=== PATIENT | female | born 1995 | race Caucasian/White ===

== ENCOUNTER 2018-09-07 14:52 | Emergency (ER) | payer SELFPAY ==
[2018-09-07] MEDS ORDERED: LIDOCAINE 1% 20 ML MDV ONE (17:59)
[2018-09-07] MEDS ORDERED: DOXYCYCLINE 100 MG CAP PO ONE (17:59)
[2018-09-07] MEDS ORDERED: CIPROFLOXACIN HCL 500 MG TAB ONE (17:59)
[2018-09-07 18:26] LABS: Urine Blood NEGATIVE (NEG); Urine Glucose NEGATIVE (NEG); Urine Protein NEGATIVE (NEG); Urine Specific Gravity 1.015 (1.005-1.030)
[2018-09-07 18:26] LABS: Urine Specific Gravity 1.015 (1.005-1.030)
--- NOTE | 2018-09-07 18:30 | ER ---
Nurse's Notes [facility] Name: Irene Flannery Age: 23 yrs Sex: Female : 1995 Arrival Date: 09/07/2018 Time: 14:54 Bed 11 Private MD: None, None Diagnosis: Pilonidal sinus with abscess;Urinary tract infection, site not specified Presentation: 09/07 16:21 Presenting complaint: Patient states: Abscess to L gluteal cleft since Tuesday, no ph drainage, redness and swelling noted, pt denies N/V/D or fever. Transition of care: patient was not received from another setting of care. Onset of symptoms was September 07, 2018. Risk Assessment: Do you want to hurt yourself or someone else? Patient reports no desire to harm self or others. Initial Sepsis Screen: Does the patient meet any 2 criteria? No. Patient's initial sepsis screen is negative. Does the patient have a suspected source of infection? No. Patient's initial sepsis screen is negative. Care prior to arrival: None. 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 - Social history:: Smoking status: Patient uses tobacco products, smokes one-half pack cigarettes per day. - Family history:: not pertinent. - Ebola Screening: : No symptoms or risks identified at this time. Screenin:00 Abuse screen: Denies threats or abuse. Denies injuries from another. Nutritional hb screening: No deficits noted. Tuberculosis screening: No symptoms or risk factors identified. Fall Risk None identified. Assessment: 17:00 General: Appears in no apparent distress. uncomfortable, Behavior is calm, cooperative. hb Pain: Pain currently is 8 out of 10 on a pain scale. Neuro: Level of Consciousness is awake, alert, obeys commands, Oriented to person, place, time, situation. Cardiovascular: Capillary refill < 3 seconds Patient's skin is warm and dry. Respiratory: Airway is patent Respiratory effort is even, unlabored, Respiratory pattern is regular, symmetrical. GI: No signs and/or symptoms were reported involving the gastrointestinal system. : No signs and/or symptoms were reported regarding the genitourinary system. EENT: No signs and/or symptoms were reported regarding the EENT system. Derm: Abscess located on coccyx. Musculoskeletal: No signs and/or symptoms reported regarding the musculoskeletal system. 18:00 Reassessment: Patient appears in no apparent distress at this time. No changes from hb previously documented assessment. Patient and/or family updated on plan of care and expected duration. Pain level reassessed. Patient is alert, oriented x 3, equal unlabored respirations, skin warm/dry/pink. 19:00 Reassessment: Patient appears in no apparent distress at this time. No changes from hb previously documented assessment. Patient and/or family updated on plan of care and expected duration. Pain level reassessed. Patient is alert, oriented x 3, equal unlabored respirations, skin warm/dry/pink. Vital Signs: 16:26 BP 129 / 82; Pulse 89; Resp 18; Temp 98.4; Pulse Ox 100% on R/A; ph ED Course: 14:54 Patient arrived in ED. ag5 14:54 None, None is Private Physician. ag5 16:26 Triage completed. ph 16:28 Arm band placed on. ph 16:45 Chitra Nj RN is Primary Nurse. ph 16:46 Blade Dolan MD is Attending Physician. ronda 18:00 Patient has correct armband on for positive identification. Bed in low position. Call hb light in reach. Side rails up X 1. 18:29 Juventino Dennis MD is Referral Physician. ronda 18:30 Assist provider with I \T\ D: of an abscess on pilonidal cyst Set up I\T\D tray. Performed hb by Blade Dolan MD Wound packed. iodoform gauze, Dressing with ABD pad, tape Patient tolerated well. 19:39 Patient did not have IV access during this emergency room visit. hb Administered Medications: 17:46 CANCELLED (Duplicate Order): Bactrim (160 mg-800 mg (DS) 1 tablet PO once ronda 18:00 Drug: Doxycycline 100 mg Route: PO; hb 18:30 Follow up: Response: No adverse reaction ph 18:00 Drug: Cipro 500 mg Route: PO; hb 18:30 Follow up: Response: No adverse reaction ph 18:32 Drug: Lidocaine-Epinephrine -1%: (1:100,000) 10 ml {Note: by Dr. Dolan.} Volume: 20 hb ml; Route: Infiltration; 19:00 Follow up: Response: No adverse reaction ph 19:02 Drug: Zofran 4 mg Route: PO; hb 19:05 Follow up: Response: No adverse reaction ph Outcome: 18:30 Discharge ordered by MD. bond 19:39 Discharged to home ambulatory, with family. hb 19:39 Condition: stable 19:39 Discharge instructions given to patient, family, Instructed on discharge instructions, follow up and referral plans. medication usage, wound care, Demonstrated understanding of instructions, follow-up care, medications, wound care, Prescriptions given X 3. 19:40 Patient left the ED. Signatures: Blade Dolan MD MD cha Hall, Patricia, RN RN Cande Garner, RN RN Chantel He ag5 Corrections: (The following items were deleted from the chart) 17:36 16:27 Allergies: No Known Allergies; [facility]
--- NOTE | 2018-09-07 18:31 | EDPHYS ---
Physician Documentation [facility] Name: Irene Flannery Age: 23 yrs Sex: Female : 1995 Arrival Date: 09/07/2018 Time: 14:54 Bed 11 Private MD: None, None ED Physician Blade Dolan HPI: 09/07 17:18 This 23 yrs old Female presents to ER via Ambulatory with complaints of Back ronda Pain, POSSIBLE CYST. 17:18 The patient presents with pain that is acute, and swelling, and tenderness. The ronda symptoms are located in the low back, coccyx area. Onset: The symptoms/episode began/occurred 2 day(s) ago. The pain does not radiate. Associated signs and symptoms: The patient has no apparent associated signs or symptoms. Severity of symptoms: At their worst the symptoms were moderate, in the emergency department the symptoms are unchanged. The patient has not experienced similar symptoms in the past. 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 - Social history:: Smoking status: Patient uses tobacco products, smokes one-half pack cigarettes per day. - Family history:: not pertinent. - Ebola Screening: : No symptoms or risks identified at this time. ROS: 17:18 Constitutional: Negative for fever, chills, and weight loss, Eyes: Negative for injury, ronda pain, redness, and discharge, ENT: Negative for injury, pain, and discharge, Neck: Negative for injury, pain, and swelling, Cardiovascular: Negative for chest pain, palpitations, and edema, Respiratory: Negative for shortness of breath, cough, wheezing, and pleuritic chest pain, Abdomen/GI: Negative for abdominal pain, nausea, vomiting, diarrhea, and constipation, Back: Negative for injury and pain, : Negative for injury, bleeding, discharge, and swelling, MS/Extremity: Negative for injury and deformity, Neuro: Negative for headache, weakness, numbness, tingling, and seizure, Psych: Negative for depression, anxiety, suicide ideation, homicidal ideation, and hallucinations, Allergy/Immunology: Negative for hives, rash, and allergies, Endocrine: Negative for neck swelling, polydipsia, polyuria, polyphagia, and marked weight changes, Hematologic/Lymphatic: Negative for swollen nodes, abnormal bleeding, and unusual bruising. 17:18 Skin: Positive for of the coccyx. Exam: 17:18 Constitutional: This is a well developed, well nourished patient who is awake, alert, ronda and in no acute distress. Head/Face: Normocephalic, atraumatic. Eyes: Pupils equal round and reactive to light, extra-ocular motions intact. Lids and lashes normal. Conjunctiva and sclera are non-icteric and not injected. Cornea within normal limits. Periorbital areas with no swelling, redness, or edema. ENT: Nares patent. No nasal discharge, no septal abnormalities noted. Tympanic membranes are normal and external auditory canals are clear. Oropharynx with no redness, swelling, or masses, exudates, or evidence of obstruction, uvula midline. Mucous membranes moist. Neck: Trachea midline, no thyromegaly or masses palpated, and no cervical lymphadenopathy. Supple, full range of motion without nuchal rigidity, or vertebral point tenderness. No Meningismus. Chest/axilla: Normal chest wall appearance and motion. Nontender with no deformity. No lesions are appreciated. Cardiovascular: Regular rate and rhythm with a normal S1 and S2. No gallops, murmurs, or rubs. Normal PMI, no JVD. No pulse deficits. Respiratory: Lungs have equal breath sounds bilaterally, clear to auscultation and percussion. No rales, rhonchi or wheezes noted. No increased work of breathing, no retractions or nasal flaring. Abdomen/GI: Soft, non-tender, with normal bowel sounds. No distension or tympany. No guarding or rebound. No evidence of tenderness throughout. Back: No spinal tenderness. No costovertebral tenderness. Full range of motion. MS/ Extremity: Pulses equal, no cyanosis. Neurovascular intact. Full, normal range of motion. Neuro: Awake and alert, GCS 15, oriented to person, place, time, and situation. Cranial nerves II-XII grossly intact. Motor strength 5/5 in all extremities. Sensory grossly intact. Cerebellar exam normal. Normal gait. Vital Signs: 16:26 BP 129 / 82; Pulse 89; Resp 18; Temp 98.4; Pulse Ox 100% on R/A; ph MDM: 16:47 Patient medically screened. [facility] 16:47 Patient medically screened. [facility] 18:54 Data reviewed: vital signs, nurses notes, lab test result(s), urinalysis. [facility] 09/07 17:18 Order name: Urine Culture [facility] 09/07 18:18 Order name: Urine Dipstick--Ancillary (enter results); Complete Time: 18:29 09/07 18:19 Order name: Urine --Ancillary (enter results); Complete Time: 18:29 09/07 17:18 Order name: Urine Dipstick-Ancillary (obtain specimen); Complete Time: 18:05 [facility] 09/07 17:18 Order name: Urine Test (obtain specimen); Complete Time: 18:04 [facility] 09/07 17:18 Order name: Dressing - Wound; Complete Time: 18:05 [facility] 09/07 17:18 Order name: Gloves, Sterile; Complete Time: 18:05 [facility] 09/07 17:18 Order name: Setup Suture Tray; Complete Time: 18:05 [facility] Administered Medications: 17:46 CANCELLED (Duplicate Order): Bactrim (160 mg-800 mg (DS) 1 tablet PO once [facility] 18:00 Drug: Doxycycline 100 mg Route: PO; hb 18:30 Follow up: Response: No adverse reaction ph 18:00 Drug: Cipro 500 mg Route: PO; hb 18:30 Follow up: Response: No adverse reaction ph 18:32 Drug: Lidocaine-Epinephrine -1%: (1:100,000) 10 ml {Note: by Dr. Dolan.} Volume: 20 hb ml; Route: Infiltration; 19:00 Follow up: Response: No adverse reaction ph 19:02 Drug: Zofran 4 mg Route: PO; hb 19:05 Follow up: Response: No adverse reaction ph Disposition: 09/07/18 18:30 Discharged to Home. Impression: Pilonidal sinus with abscess, Urinary tract infection, site not specified. - Condition is Stable. - Discharge Instructions: Skin Abscess, Incision and Drainage, Pilonidal Cyst, Skin Abscess, [id number], Incision and Drainage, Care After. - Prescriptions for Doxycycline Hyclate 100 mg Oral Tablet - take 1 tablet by ORAL route every 12 hours; 20 tablet. Cipro 500 mg Oral Tablet - take 1 tablet by ORAL route every 12 hours for 7 days; 14 tablet. Ibuprofen 600 mg Oral Tablet - take 1 tablet by ORAL route every 8 hours As needed take with food; 21 tablet. - Medication Reconciliation Form, Thank You Letter, Antibiotic Education, Prescription Opioid Use form. - Follow up: Juventino Dennis; When: 2 - 3 days; Reason: Recheck today's complaints, Re-evaluation by your physician. - Problem is new. - Symptoms have improved. Signatures: Dispatcher [employer] EDMS Blade Dolan MD MD cha Hall, Patricia, RN RN Cande Garner RN RN Corrections: (The following items were deleted from the chart) 17:36 16:27 Allergies: No Known Allergies; [facility] 17:46 17:18 Bactrim (160 mg-800 mg (DS) 1 tablet PO once ordered. ronda [facility] 19:40 18:30 09/07/2018 18:30 Discharged to Home. Impression: Pilonidal sinus with abscess; hb Urinary tract infection, site not specified. Condition is Stable. Discharge Instructions: Skin Abscess, Incision and Drainage, Pilonidal Cyst, Skin Abscess, [id number], Incision and Drainage, Care After. Prescriptions for Tylenol-Codeine #3 300-30 mg Oral Tablet - take 2 tablet by ORAL route every 6 hours As needed; 30 tablet, Doxycycline Hyclate 100 mg Oral Tablet - take 1 tablet by ORAL route every 12 hours; 20 tablet, Cipro 500 mg Oral Tablet - take 1 tablet by ORAL route every 12 hours for 7 days; 14 tablet. and Forms are Medication Reconciliation Form, Thank You Letter, Antibiotic Education, Prescription Opioid Use. Follow up: Juventino Dennis; When: 2 - 3 days; Reason: Recheck today's complaints, Re-evaluation by your physician. Problem is new. Symptoms have improved. ronda
[2018-09-07] MEDS ORDERED: ONDANSETRON 4 MG (ODT) TAB ONE (19:12)
== END 2018-09-07 19:40 | disposition home or self-care (01) ==
LOC: ER 14:52
PROC: 0H98XZZ Drainage of Buttock Skin, External Approach (ICD-10-PCS; principal; 2018-09-07)
DX: L05.01 Pilonidal cyst with abscess (principal); N39.0 Urinary tract infection, site not specified; F17.210 Nicotine dependence, cigarettes, uncomplicated; Z88.1 Allergy status to other antibiotic agents
CPT/HCPCS: 81003; 81025; 87086; 87088; 99283

== ENCOUNTER 2022-05-14 05:54 | Emergency (ER) | payer OTHER, SELFPAY ==
[2022-05-14] MEDS ORDERED: ONDANSETRON 4 MG/2 ML VIAL ONE (06:19)
[2022-05-14] MEDS ORDERED: NA CHLORIDE 0.9% 1,000 ML ONE (06:19)
[2022-05-14] MEDS ORDERED: MORPHINE 2 MG/ML SYR ONE (06:19)
[2022-05-14] MEDS ORDERED: TETANUS & DIPHTHERIA TOX,ADULT 0.5 ML VIAL ONE (06:19)
[2022-05-14 06:55] LABS: ALT/SGPT 99 U/L (12-78); AST/SGOT 36 U/L (15-37); Absolute Lymphocytes (CBC) 2.1 K/uL (0.7-4.9); Albumin 3.8 g/dL (3.4-5.0); Alkaline Phosphatase 71 U/L (45-117); BUN Blood Urea Nitrogen 10 mg/dL (7-18); Bicarbonate 24 mmol/L (21-32); Bilirubin Total 0.2 mg/dL (0.2-1.0); Glomerular Filtration Rate 68 ml/min (=/>90); Glucose Level 165 mg/dL (74-106); Hematocrit 46.2 % (36.0-45.0); Lipase 226 U/L (73-393); Lymphocytes % 17.9 % (15.3-44.8); MCV 91.4 fL (80-100); MPV 8.8 fL (7.6-11.3); Protein, Total 7.8 g/dL (6.4-8.2); RBC Red Blood Cell Count 5.06 M/uL (3.86-4.86); Sodium Level 144 mmol/L (136-145)
[2022-05-14 07:04] LABS: Bilirubin Direct < 0.1 mg/dL (0-0.2)
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
[2022-05-14 08:00] LABS: Urine Blood Trace-intact (Negative); Urine Glucose Negative (Negative); Urine Protein Negative (Negative)
[2022-05-14] MEDS ORDERED: KETOROLAC 30 MG/ML INJ ONE (08:10)
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
[2022-05-14 09:22] VITALS: TEMP 97.9; O2SAT 100
[2022-05-14 09:33] VITALS: BP 130/80
== END 2022-05-14 09:05 | disposition home or self-care (01) ==
LOC: ER 05:54
DX: S29.011A Strain of muscle and tendon of front wall of thorax, initial encounter (principal); S29.012A Strain of muscle and tendon of back wall of thorax, initial encounter; S81.012A Laceration without foreign body, left knee, initial encounter; V49.50XA Passenger injured in collision with unspecified motor vehicles in traffic accident, initial encounter; Z23 Encounter for immunization; Z88.1 Allergy status to other antibiotic agents
CPT/HCPCS: 85025; 80048; 36415; 86900; 86850; 81025; 82565; 86901; 80076; 81003; 83690; 70450; 72125; 71260; 74177; 71045; 73562; 90471; 90714; 96375; 96374; 99285; Q9967; J2270; J7030; J2405